=== PATIENT | male | born 1990 | race Caucasian/White ===

== ENCOUNTER 2019-05-29 20:00 | Emergency (ER) | payer SELFPAY ==
[~2019-05-29] VITALS: Ht 170.2 cm; Wt 72.7 kg
[~2019-05-29 20:00] MED LIST: AZOPT; BETIMOL 0.5% OPH5 ML OP; [UNRECOGNIZED DRUG - OTHER]; pred forte
[2019-05-29 20:04] VITALS: BP 134/75; TEMP 98.2
[2019-05-29 21:56] VITALS: PULSE 95
== END 2019-05-29 21:40 | disposition home or self-care (01) ==
LOC: COL.ER 20:00
DX: S82.892A Other fracture of left lower leg, initial encounter for closed fracture (principal); X50.1XXA Overexertion from prolonged static or awkward postures, initial encounter; Y92.009 Unspecified place in unspecified non-institutional (private) residence as the place of occurrence of the external cause
CPT/HCPCS: J3010; Q4041; Q4045